=== PATIENT | male | born 1960 | race Caucasian/White ===

== ENCOUNTER → 2017-02-15 | Outpatient (CLI) | payer OTHER ==
[~2017-02-15] MED LIST: ACETAMINOPHEN PO; BAYER ASPIRIN325 M1 PO; BENICAR20 MG PO; DETROL LA PO; DUONEB; LC D NEBULIZER1 EAC1; LEVAQUIN PO; LOSARTAN POTASS50 MG PO; METOPROLOL TAR25 MG PO; MOBIC15 MG PO; NEXIUM20 MG PO; NIACIN500 M2 PO; OMEGA-31000 M1 PO; PREDNISONE PO; SYMBICORT; VYTORIN 10-20 T1 TAB PO; ZYLOPRIM100 MG PO
--- NOTE | ~2017-02-15 | CT4 ---
[facility] A Service of [facility] RADIOLOGY TEXT RESULTS PATIENT: TRINO PHELAN LOCATION: [facility] : 58 UNIT #: [id number] AGE: [address]: Margarito Denney MD SEX: M ORDER DR: [id number] [facility]. [place], [place] [address] [id number] O MR#: [id number] Acc #: [id number] NAME: TRINO PHELAN : 1960 SEX: M STUDY DATE/TIME: 02/15/2017 13:32 UNIT: [facility] ROOM: STUDY DESCRIPTION: CT Abd and Pelv Wo Cont Attending Physician: Margarito Denney Jr., M.D. Referring Physician: Margarito Denney Jr., M.D. Ordering Physician: Margarito Denney Jr., M.D. Primary Care Physician: Margarito Denney Jr., M.D. MEDICAL IMAGING REPORT This report is preliminary unless electronic signature is present EXAM CT abdomen and pelvis without contrast. INDICATION Right flank pain since December 2016 with hematuria. PROCEDURE Unenhanced CT of the abdomen and pelvis. This CT exam was performed with one or more of the following radiation dose reduction techniques: automatic exposure control, adjustment of mA and/or kV according to patient size, and iterative reconstruction. COMPARISON 08/29/2009 FINDINGS ABDOMEN WITHOUT CONTRAST: The included lung bases are clear. Liver enlarged measuring 19.8 cm. Diffuse hepatic steatosis. The spleen, kidneys, adrenal glands, pancreas, gallbladder show no acute abnormality. There are a few uncomplicated sigmoid diverticula. Appendix is normal. There is a [employer] shunt catheter that terminates in the right lower quadrant of the abdomen. No surrounding fluid. No radiodense urinary system calculus or hydronephrosis. PELVIS WITHOUT CONTRAST: No radiodense bladder calculus. No pelvic mass. No aggressive appearing bone lesions. IMPRESSION 1. No acute findings. No specific finding to explain the patient's right flank pain or hematuria. [facility] A Service of [facility] RADIOLOGY TEXT RESULTS PATIENT: TRINO PHELAN [facility] [id number] : 58 UNIT #: [id number] AGE: [address]: Margarito Denney MD SEX: M ORDER DR: 2. Hepatomegaly with steatosis. Dictated by... Daren Stauffer M.D. THIS IS AN ELECTRONICALLY VERIFIED REPORT Daren Stauffer M.D. at 02/16/2017 7:23 AM CLIFFORDD/sondra TD: 02/15/2017 16:26 JOB #: [id number] MEDICAL IMAGING REPORT Page 1 of 1 COPY
== END | disposition home or self-care (01) ==
LOC: CCAT 13:06
DX: R10.9 Unspecified abdominal pain (principal); K76.0 Fatty (change of) liver, not elsewhere classified; R16.0 Hepatomegaly, not elsewhere classified; R31.0 Gross hematuria; R10.2 Pelvic and perineal pain
CPT/HCPCS: 74176